=== PATIENT | male | born 1970 | race Hispanic/Latino ===

== ENCOUNTER 2017-04-14 16:12 | Inpatient (IN) | payer SELFPAY ==
[2017-04-14 16:21] VITALS: O2SAT 98
[2017-04-14] MEDS ORDERED: Sodium Chloride 0.9% 1,000 ML IV STA (16:55)
--- NOTE | 2017-04-14 17:26 | ED PDOC ---
HPI: Chest Pain Time Seen by Provider: 04/14/17 16:31 Chief Complaint (Nursing): Chest Pain Chief Complaint (Provider): chest discomfort History Per: Patient History/Exam Limitations: no limitations Onset/Duration Of Symptoms: Hrs (started at 11am) Associated Symptoms: Nausea, Diaphoresis Additional Complaint(s): Reports feeling in the left side of his chest going "in and out". Not outright pain. Possibly palpitations. Associated with brief shortness of breath and nausea and some retching. He attempted to walk to an [employer] appointement but continued to feel badly and instead walked in to a doctor's office who sent him to the ER. Pt also reports multiple stressful events in his life, that he is depressed. He has been taking adderall more than usual and using marijuana regularly every night to help him sleep. 2 days ago he decided to quit both cold turkey. Would like to see a psychiatrist. Past Medical History Reviewed: Historical Data, Nursing Documentation, Vital Signs Vital Signs: Last Vital Signs Temp 98 F 04/14/17 16:18 Pulse 92 H 04/14/17 16:18 Resp 20 04/14/17 16:18 BP 124/72 04/14/17 16:18 Pulse Ox 98 04/14/17 17:33 - Medical History PMH: Anxiety - Surgical History Surgical History: Hernia Repair, Tonsillectomy - Family History Family History: States: Other Other Family History: Depression - Social History Current smoker - smoking cessation education provided: No (Uses chewing tobacco regularly) Alcohol: Social Drugs: Cannabis, Prescription medications - Home Medications Home Medications: Ambulatory Orders Medication Instructions Recorded Ondansetron ODT [Zofran ODT] 1 odt PO Q6 PRN #20 odt 04/14/17 - Allergies Allergies/Adverse Reactions: Allergies Allergy/AdvReac Type Severity Reaction Status Date / Time No Known Allergies Allergy Verified 04/14/17 16:18 JUAN Risk Score for UA/NSTEMI - JUAN Risk Score Age > 64: NO 3 or more CAD Risk Factors: NO Known CAD (Stenosis greater than 50%): NO Aspirin use in past 7 days: NO Severe Angina: NO EKG ST changes greater than 0.5mm: NO Positive Cardiac Marker: NO JUAN Score: 0 Risk %: 5% Review of Systems ROS Statement: Except As Marked, All Systems Reviewed And Found Negative (and as per HPI) Constitutional: Positive for: Chills, Weakness, Malaise. Negative for: Fever Physical Exam - Reviewed Nursing Documentation Reviewed: Yes Vital Signs Reviewed: Yes - Physical Exam Appears: Positive for: Non-toxic, In Acute Distress (crying in ER) Head Exam: Positive for: ATRAUMATIC, NORMOCEPHALIC Skin: Positive for: Warm, Dry Eye Exam: Positive for: EOMI, PERRL, Conjunctival injection ENT: Positive for: Other (tacky muc membranes) Neck: Positive for: Painless ROM, Supple Cardiovascular/Chest: Positive for: Regular Rate, Rhythm, Chest Non Tender. Negative for: Murmur Respiratory: Positive for: Normal Breath Sounds. Negative for: Wheezing, Respiratory Distress Gastrointestinal/Abdominal: Positive for: Soft. Negative for: Tenderness, Mass , Distended, Guarding Back: Positive for: Normal Inspection. Negative for: Muscle Spasm Extremity: Positive for: Normal ROM. Negative for: Deformity Lymphatic: Negative for: Adenopathy Neurologic/Psych: Positive for: Alert, assembly instructions writer II-XII (grossly intact), Oriented (x3 ), Mood/Affect (depressed and tearful and anxious, fair concentration ( sometimes doesn't answer questions directly) and slow to answer questions). Negative for: Motor/Sensory Deficits, Facial Droop - Laboratory Results Result Diagrams: 04/14/17 17:28 04/14/17 17:28 Interpretation Of Abn Labs: No emergent clinically significant lab abnormalities - ECG ECG: Positive for: Interpreted By Me ECG Rhythm: Positive for: Normal QRS, Normal ST Segment, Sinus Rhythm O2 Sat by Pulse Oximetry: 98 Pulse Ox Interpretation: Normal - Progress ED Course And Treament: Evaluated by LINDA Mauro, who d/w Jorgito Paul. Pt offered hospitalization but declined. He is stable for discharge otherwise. Medical Decision Making Medical Decision Making: Nausea and chest discomfort with clinical signs of anxiety and depression. No suicidal or homicidal ideation. No emergent medical conditions. Evaluated and cleared by Crisis with follow up appointment April 21. Stable for discharge. Disposition - Clinical Impression Clinical Impression: Adjustment disorder, Nausea Counseled Patient/Family Regarding: Studies Performed, Diagnosis, Need For Followup, Rx Given - Disposition Referrals: [facility] [Outside] - 04/21/17 (FOLLOW UP SCHEDULED FOR YOUR APPOINTMENT) Disposition: Routine/Home Disposition Time: 19:00 Condition: STABLE Prescriptions: Ondansetron ODT [Zofran ODT] 1 odt PO Q6 PRN #20 odt PRN Reason: Nausea/Vomiting Instructions: Stress (ED), Acute Nausea and Vomiting (ED) Forms: [facility] ED School/Work Excuse
[2017-04-14 17:53] LABS: BASO % 0.6 % (0.0-2.0); EOS # 0.1 K/uL (0.0-0.7); EOS % 0.9 % (0.0-4.0); LYMPH % 24.2 % (20.0-40.0); MEAN CELL VOLUME 91.6 fl (80.0-94.0); MEAN CORPUSCULAR HEMOGLOBIN 31.5 pg (27.0-31.0); MEAN CORPUSCULAR HGB CONC 34.4 g/dL (33.0-37.0); MEAN PLATELET VOLUME 9.8 fl (7.2-11.7); MONO # 0.7 K/uL (0.0-0.8); MONO % 8.8 % (0.0-10.0); NEUT # 5.4 K/uL (1.8-7.0); NEUT % 65.5 % (50.0-75.0); NRBC % 0.6 % (0.0-0.0); RBC 4.75 Mil/uL (4.40-5.90); RED CELL DISTRIBUTION WIDTH 12.6 % (11.5-14.5); WHITE BLOOD COUNT 8.2 K/uL (4.8-10.8)
[2017-04-14 18:02] LABS: ALB/GLOB RATIO 1.8 (1.0-2.1); ALBUMIN 4.5 g/dL (3.5-5.0); ALT/SGPT 64 U/L (21-72); AST/SGOT 33 U/L (17-59); BLOOD UREA NITROGEN 9 mg/dl (9-20); CALCIUM 8.8 mg/dL (8.4-10.2); GFR AFRICAN-AMERICAN > 60; GFR NON-AFRICAN AMERICAN > 60; LIPASE 60 U/L (23-300); MAGNESIUM 1.8 MG/DL (1.6-2.3)
[2017-04-14 18:12] LABS: PARTIAL THROMBOPLASTIN TIME 27.7 Seconds (25.6-37.1)
[2017-04-14 19:10] LABS: BARBITURATES, UR NEGATIVE (NEGATIVE); BENZODIAZEPINES, UR NEGATIVE (NEGATIVE); OPIATES, UR NEGATIVE (NEGATIVE); PHENCYCLIDINE, UR NEGATIVE (NEGATIVE)
[2017-04-14] MEDS ORDERED: DiphenhydrAMINE 50 mg/ml Inj IM PRN (23:11)
[2017-04-14] MEDS ORDERED: Magnesium Hydroxide Susp 30 ml UD PO PRN (23:11)
[2017-04-14] MEDS ORDERED: Alum-Mag Hydrox-Simethicone Susp (30 mL) PO PRN (23:11)
[2017-04-15 09:32] LABS: T4 10.3 ug/dl (5.5-11.0)
[2017-04-15 09:36] VITALS: RESP 18
--- NOTE | 2017-04-15 12:05 | CP.PCM.CON ---
History of Present Illness - History of Present Illness History of Present Illness: 46 yo male with no significant PMH admitted to psyche unit because of increasing anxiety. Review of Systems - Review of Systems All systems: reviewed and no additional remarkable complaints except (aside from those mentioned above, 12 point system review were negative by me) Past Patient History - Tetanus Immunizations Tetanus Immunization: Unknown - Past Medical History & Family History Past Family History: Reviewed and not pertinent - Past Social History Smoking Status: Unknown If Ever Smoked Alcohol: Social Drugs: Cannabis, Prescription medications - CARDIAC Hx Cardiac Disorders: No - PULMONARY Hx Respiratory Disorders: No - NEUROLOGICAL Hx Neurological Disorder: No - HEENT Hx HEENT Problems: No - RENAL Hx Chronic Kidney Disease: No - ENDOCRINE/METABOLIC Hx Endocrine Disorders: No - HEMATOLOGICAL/ONCOLOGICAL Hx Blood Disorders: No - INTEGUMENTARY Hx Dermatological Problems: No - MUSCULOSKELETAL/RHEUMATOLOGICAL Hx Musculoskeletal Disorders: No - GASTROINTESTINAL Hx Gastrointestinal Disorders: Yes - GENITOURINARY/GYNECOLOGICAL Hx Genitourinary Disorders: No - PSYCHIATRIC Hx Substance Use: No - SURGICAL HISTORY Hx Tonsillectomy: Yes - ANESTHESIA Hx Anesthesia: Yes Hx Anesthesia Reactions: No Meds Home Medications: Home Medication List Medication Instructions Recorded Confirmed Type Ondansetron ODT [Zofran ODT] 1 odt PO Q6 PRN #20 odt 04/14/17 Rx Allergies/Adverse Reactions: Allergies Allergy/AdvReac Type Severity Reaction Status Date / Time No Known Allergies Allergy Verified 04/14/17 16:18 - Medications Medications: Current Medications Acetaminophen (Tylenol 325mg Tab) 650 mg PO Q4 PRN PRN Reason: pain level 1 to 7 Al Hydrox/Mg Hydrox/Simethicone (Maalox Plus 30 Ml) 30 ml PO Q4 PRN PRN Reason: Dyspepsia Diphenhydramine HCl (Benadryl) 50 mg IM Q6 PRN PRN Reason: Extrapyramidal S/S Unable PO Diphenhydramine HCl (Benadryl) 50 mg PO Q6 PRN PRN Reason: Extrapyramidal Symptoms Diphenhydramine HCl (Benadryl) 50 mg PO HS PRN PRN Reason: Sleep Haloperidol (Haldol) 5 mg PO Q4 PRN PRN Reason: Agitation Haloperidol Lactate (Haldol) 5 mg IM Q4 PRN PRN Reason: Agitation, Unable to Take PO Lorazepam (Ativan) 2 mg IM Q4 PRN PRN Reason: Anxiety/Agitation,Unable PO Lorazepam (Ativan) 2 mg PO Q4 PRN PRN Reason: Anxiety/Agitation Magnesium Hydroxide (Milk Of Magnesia) 30 ml PO HS PRN PRN Reason: Constipation Physical Exam - Constitutional Appears: No Acute Distress - Head Exam Head Exam: ATRAUMATIC - Eye Exam Eye Exam: absent: Scleral icterus - ENT Exam ENT Exam: Mucous Membranes Moist - Neck Exam Neck exam: Negative for: Meningismus - Respiratory Exam Respiratory Exam: absent: Rhonchi, Wheezes, Respiratory Distress - Cardiovascular Exam Cardiovascular Exam: REGULAR RHYTHM, +S1, +S2 - GI/Abdominal Exam GI & Abdominal Exam: Soft. absent: Tenderness - Rectal Exam Rectal Exam: Deferred - Extremities Exam Extremities exam: Negative for: pedal edema - Neurological Exam Neurological exam: Alert, Oriented x3 - Psychiatric Exam Psychiatric exam: Normal Affect - Skin Skin Exam: Dry, Intact Results - Vital Signs Recent Vital Signs: Last Vital Signs Temp 97.9 F 04/15/17 09:32 Pulse 85 04/15/17 09:32 Resp 18 04/15/17 09:32 BP 138/76 04/15/17 09:32 Pulse Ox 98 04/14/17 19:40 - Labs Result Diagrams: 04/14/17 17:28 04/14/17 17:28 Labs: Laboratory Results - last 24 hr 04/15/17 08:54 Triglycerides 61 Cholesterol 178 LDL Cholesterol Direct 116 HDL Cholesterol 52 Thyroxine (T4) 10.3 TSH 3rd Generation 0.65 Assessment & Plan (1) Anxiety Status: Acute Comment: psyche is managing
--- NOTE | 2017-04-15 19:28 | PCM.PSYCH ---
Initial Psychiatric Evaluation - Initial Psychiatric Evaluation Type of Admission: Voluntary Chief Complaint (in patient's own words): pt was approached by this proposal writer, proposal writer introduced self and identification was shown. pt reports feeling anxious and was not sleeping. then informed this proposal writer that he does not feel comfortable talking, was explained to pt the role of an advanced practice degress (skewer up). pt requests to wait until am to talk. acknowledged pt's thoughts attempted to process pt's presentation to [facility] on a voluntary admission in essence looking for help. explained to pt that is was in fact this proposal writer that the farmworker livestock contacted overnight to discuss pt- shared with pt that in fact pt initially wished to be discharged from er and was deemed able to be discharged to care of girlfriend, girlfriend was reported to have talk to pt and pt was then agreeable to be admitted (attempted to demonstrate to pt that proposal writer was familiar with his case). pt appeared to have erractic eye contact, tossing a book that was in his hands back and forth in his hands. continues to request to discuss case further in am. notes by staff report pt has a presentation of anxiety and decreased sleep for approx. 2 days prior to admission. records reviewed reveal the below ([employer] er [facility] er) CW JL obtained additional collateral information from the pt.s girlfriend, Linsey Cobb. The pt.s girlfriend reported that the pt.s father does have a history of manic depression. The pt.s girlfriend reported that the pt. does exhibit some symptoms of paranoia at times, which she attributed to work related stress. The pt.s girlfriend reported that the pt. has not been seeing his son as often, which she believes is a trigger for him. The pt.s girlfriend reported that the pt.s current relationship with his son has really impacted him lately, since they use to speak regularly. The pt.s girlfriend reported that the pt. has not been pursuing his interests regularly, such as working out. The pt.s girlfriend believes that the pt. did have some outrageous statements about his work yesterday, e.g. the pt. stated that he lost a lot of money, e.g. I lost 40 million dollars. The pt.s girlfriend also reported that the pt. made incoherent statements, also making vague reference to a Ponzi scheme. The pt.s girlfriend reported that the pt. used to work at [employer]. The pt.s girlfriend reported that the pt. has not been sleeping for the past three nights. The pt.s girlfriend reported that the pt. thought that there were people that were watching him when they were dining last night, making reference to black cars that he thought were following him. The pt.s girlfriend reported that the pt. waited to see if a black car would come to pick him up, suggesting that he needed to go wherever the black car would take him. The pt.s girlfriend reported that the pt. started walking aimlessly towards [employer]. The pt.s girlfriend also reported that the pt. asked why are you quizzing me. The pt.s girlfriend reported that the pt.s sister lives in [place], but is familiar with the familys history of genetics. The pt.s girlfriend reported that the pt. made reference to his children earlier today, crying thereafter, suggesting that he wants to see his children. The pt.s girlfriend reported that the pt. had stated that the pt. felt like there were others messing with his food. The pt.s girlfriend reported that the pt.s mind races. The pt.s girlfriend reported that the pt.s thinking was over the top. The pt.s girlfriend was unsure if the pt. needed to admitted to psychiatric inpatient, and suggested that she would like to speak to his sister about this situation. The pt. presents to this ER as a 46 year old male pt., who self referred to the ER with complaint of chest pain. LINDA BOSS. assessed the pt. At the time of the assessment the pt. exhibited symptoms of anxiety; the pt. did answer all questions asked of him, but did not provide a great level of detail in his responses. The pt.s speech was somewhat pressured at times, but WNL. The pt. was noted holding his chest, at which time he was also noted looking at the monitors in his room in a manner that showed concern. The pt.s mood was somewhat depressed and his affect was constricted. The pt. reported that he has been anxious for the past week and feels crazy. When this CW asked for the pt. to explain what he ment by this statement, the pt. explained I have been feeling very anxious. The pt. also reported that for the past week he has also felt a little depressed. The pt. spoke about his current life stressors, explaining that his relationship with his son has not been what it used to be. The pt. also reported that he has work related stressors. 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 The pt.s thought process was disoriented at times but just WNL; the pt. often took an extensive period of time to answer some questions. The pt. reported that he went through a bad divorce with his . The pt. also reported that he has been feeling overwhelmed lately. The pt. reported that he has suffered a traumatic life experience, which he described as the passing of his mother many years ago; at this time the pt. began to cry uncontrollably. The pt. was alert and oriented X3. The pt. then became calm towards the end of the assessment, and reported that he felt much better. The pt. denied SI and HI. The pt. also denied A/V/T hallucinations. The pt. did admit to use of marijuana, excessively over the last few days. The pt. was offered admission, pending the disposition of the psychiatrist, the pt. reported that he would consider it. The pt. admitted to felony charges, related to "computer spyware." The pt. also reported that he had 2 misdeamenor charges but did not provide full details History of Present Illness and Precipitating Events: 17:[address] Juan Sanchez referred the pt. to crisis, also explaining that the pt. self referred to the hospital due to chest pains, but seems to be exhibiting some underlying depression. 17:03 CW GERA. assessed the pt. At the time of the assessment the pt. exhibited symptoms of anxiety; the pt. did answer all questions asked of him, but did not provide a great level of detail in his responses. The pt.s speech was somewhat pressured at times, but WNL. The pt. was noted holding his chest, at which time he was also noted looking at the monitors in his room in a manner that showed concern. The pt.s mood was somewhat depressed and his affect was constricted. The pt. reported that he has been anxious for the past week and feels crazy. When this CW asked for the pt. to explain what he ment by this statement, the pt. explained I have been feeling very anxious. The pt. also reported that for the past week he has also felt a little depressed. The pt. spoke about his current life stressors, explaining that his relationship with his son has not been what it used to be. The pt. also reported that he has work related stressors. 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 The pt.s thought process was disoriented at times but just WNL; the pt. often took an extensive period of time to answer some questions. The pt. reported that he went through a bad divorce with his . The pt. also reported that he has been feeling overwhelmed lately. The pt. reported that he has suffered a traumatic life experience, which he described as the passing of his mother many years ago; at this time the pt. began to cry uncontrollably. The pt. was alert and oriented X3. The pt. then became calm towards the end of the assessment, and reported that he felt much better. The pt. denied SI and HI. The pt. also denied A/V/T hallucinations. The pt. did admit to use of marijuana, excessively over the last few days. The pt. was offered admission, pending the disposition of the psychiatrist, the pt. reported that he would consider it. 17:17 CW SIMEON called to verify if there is a PAD on file for the pt. According to [facility] worker Desiree there is no PAD on file. 17:31 CW GERA obtained additional collateral information from the pt.s girlfriend , Linsey Cobb. The pt.s girlfriend reported that the pt.s father does have a history of manic depression. The pt.s girlfriend reported that the pt. does exhibit some symptoms of paranoia at times, which she attributed to work related stress. The pt.s girlfriend reported that the pt. has not been seeing his son as often, which she believes is a trigger for him. The pt.s girlfriend reported that the pt.s current relationship with his son has really impacted him lately, since they use to speak regularly. The pt.s girlfriend reported that the pt. has not been pursuing his interests regularly, such as working out. The pt.s girlfriend believes that the pt. did have some outrageous statements about his work yesterday, e.g. the pt. stated that he lost a lot of money, e.g. I lost 40 million dollars. The pt.s girlfriend also reported that the pt. made incoherent statements, also making vague reference to a Ponzi scheme. The pt.s girlfriend reported that the pt. used to work at [employer]. The pt.s girlfriend reported that the pt. has not been sleeping for the past three nights. The pt.s girlfriend reported that the pt. thought that there were people that were watching him when they were dining last night, making reference to black cars that he thought were following him. The pt.s girlfriend reported that the pt. waited to see if a black car would come to pick him up, suggesting that he needed to go wherever the black car would take him. The pt.s girlfriend reported that the pt. started walking aimlessly towards [employer]. The pt.s girlfriend also reported that the pt. asked why are you quizzing me. The pt.s girlfriend reported that the pt.s sister lives in [place], but is familiar with the familys history of genetics. The pt.s girlfriend reported that the pt. made reference to his children earlier today, crying thereafter, suggesting that he wants to see his children. The pt.s girlfriend reported that the pt. had stated that the pt. felt like there were others messing with his food. The pt.s girlfriend reported that the pt.s mind races. The pt.s girlfriend reported that the pt.s thinking was over the top. The pt.s girlfriend was unsure if the pt. needed to be kept inpatient, and suggested that she would like to speak to his sister about this situation. 17:55 LINDA BOSS. gave report to the on-call Nurse Practitioner Jorgito Paul, whos disposition was to offer admission. 18:17 LINDA BOSS attempted to obtain additional collateral information from the pt.s sister, Leslie Conley ([phone]); no answer, left message with detailed call back information. 18:30 CW GERA. offered admission to the pt., also explaining to the pt. the policies, expected length of stay and visitation rights of the unit; the pt. wanted to consider outpatient. This CW suggested that the pt. consider admission and provided him with some time to do so. 18:35 LINDA BOSS. apprised ER DrClarita, Dr Martinez with regards to the disposition of the psychiatrist, also reporting that the pt. was being given a little more time to consider admission. Dr. Martinez was also informed that the order was to go under [facility], although disp. was provided by WERO Paul 18:43 CW GERA. spoke to the pt., who at this time, declined admission; the pt. did accept an appointment for 06/21/2017 at 9:20AM with the [facility]. The pt. was agreeable to follow up and was provided with outpatient referrals including [facility]. The pt. was also explained that if his symptoms worsen or persist he could return to the hospital for re-evaluation for inpatient admission. Current Medications: Active Medications Generic Name Dose Route Start Last Admin Trade Name Freq PRN Reason Stop Dose Admin Acetaminophen 650 mg 04/14/17 23:11 Tylenol 325mg Tab PO Q4 PRN pain level 1 to 7 Al Hydrox/Mg Hydrox/Simethicone 30 ml 04/14/17 23:11 Maalox Plus 30 Ml PO Q4 PRN Dyspepsia Diphenhydramine HCl 50 mg 04/14/17 23:11 Benadryl IM Q6 PRN Extrapyramidal S/S Unable PO Diphenhydramine HCl 50 mg 04/14/17 23:11 Benadryl PO Q6 PRN Extrapyramidal Symptoms Diphenhydramine HCl 50 mg 04/14/17 23:18 Benadryl PO HS PRN Sleep Haloperidol 5 mg 04/14/17 23:11 Haldol PO Q4 PRN Agitation Haloperidol Lactate 5 mg 04/14/17 23:11 Haldol IM Q4 PRN Agitation, Unable to Take PO Lorazepam 2 mg 04/14/17 23:11 Ativan IM Q4 PRN Anxiety/Agitation,Unable PO Lorazepam 2 mg 04/14/17 23:11 Ativan PO Q4 PRN Anxiety/Agitation Magnesium Hydroxide 30 ml 04/14/17 23:11 Milk Of Magnesia PO HS PRN Constipation Past Psychiatric History - Past Psychiatric History Prior Professional Help: recoreds reveal pt gave a hx of occasional tx no detail offered Pertinent Medical Hx (Current Medical&Sleep Prob, Allergies): Allergies Allergy/AdvReac Type Severity Reaction Status Date / Time No Known Allergies Allergy Verified 04/14/17 16:18 Ondansetron ODT [Zofran ODT] 1 odt PO Q6 PRN #20 odt 04/14/17 Review of Systems - Psychiatric Psychiatric: Abnormal Sleep Pattern, Anxiety, Paranoia, Visual Hallucinations Additional comments: per review of information offered in er and upon presentation to unit Mental Status Examination - Personal Presentation Personal Presentation: Looks stated age - Affect Affect: Constricted - Motor Activity Motor Activity: Psychomotor Agitation - Reliability in Providing Information Additional comments: minimum offered - Speech Additional comments: soft under productive - Formal Thought Process Additional comments: per history possible paranoia as well as initial interaction with this proposal writer - Hallucinations/Delusions Hallucinations: Visual Additional comments: per history - Strength & Assets Inventory Additional comments: voluntary - Limitations Additional comments: new to unit, likely first inpt adm, paranoia, anxiety, insomnia DSM 5 DX - DSM 5 DSM 5 Diagnosis: 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
--- NOTE | 2017-04-15 20:30 | CARD ---
APPROVED REPORT EKG Measurement Heart [id number] <Conclusion> Normal sinus rhythm Normal ECG
--- NOTE | 2017-04-16 19:50 | PCM.PYCHPN ---
Psychiatric Progress Note - Psychiatric Progress Note Patient seen today, length of contact: chart reviewed case discussed with team Patient Chief Complaint: was approached by this technical proposal writer, technical proposal writer introduced self and identification was shown. pt reports feeling anxious and was not sleeping. 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 pt requests to wait until am to talk. acknowledged pt's thoughts attempted to process pt's presentation to [facility] on a voluntary admission in essence looking for help. explained to pt that is was in fact this technical proposal writer that the die try out worker contacted overnight to discuss pt- shared with pt that in fact pt initially wished to be discharged from er and was deemed able to be discharged to care of girlfriend, girlfriend was reported to have talk to pt and pt was then agreeable to be admitted (attempted to demonstrate to pt that technical proposal writer was familiar with his case). pt appeared to have erractic eye contact, tossing a book that was in his hands back and forth in his hands. continues to request to discuss case further in am. notes by staff report pt has a presentation of anxiety and decreased sleep for approx. 2 days prior to admission. records reviewed reveal the below (die try out worker er [facility] er) CW JL obtained additional collateral information from the pt.s girlfriend, Linsey Cobb. The pt.s girlfriend reported that the pt.s father does have a history of manic depression. The pt.s girlfriend reported that the pt. does exhibit some symptoms of paranoia at times, which she attributed to work related stress. The pt.s girlfriend reported that the pt. has not been seeing his son as often, which she believes is a trigger for him. The pt.s girlfriend reported that the pt.s current relationship with his son has really impacted him lately, since they use to speak regularly. The pt.s girlfriend reported that the pt. has not been pursuing his interests regularly, such as working out. The pt.s girlfriend believes that the pt. did have some outrageous statements about his work yesterday, e.g. the pt. stated that he lost a lot of money, e.g. I lost 40 million dollars. The pt.s girlfriend also reported that the pt. made incoherent statements, also making vague reference to a Ponzi scheme. The pt.s girlfriend reported that the pt. used to work at [employer]. The pt.s girlfriend reported that the pt. has not been sleeping for the past three nights. The pt.s girlfriend reported that the pt. thought that there were people that were watching him when they were dining last night, making reference to black cars that he thought were following him. The pt.s girlfriend reported that the pt. waited to see if a black car would come to pick him up, suggesting that he needed to go wherever the black car would take him. The pt.s girlfriend reported that the pt. started walking aimlessly towards [address] The pt.s girlfriend also reported that the pt. asked why are you quizzing me. The pt.s girlfriend reported that the pt.s sister lives in [place], but is familiar with the familys history of genetics. The pt.s girlfriend reported that the pt. made reference to his children earlier today, crying thereafter, suggesting that he wants to see his children. The pt.s girlfriend reported that the pt. had stated that the pt. felt like there were others messing with his food. The pt.s girlfriend reported that the pt.s mind races. The pt.s girlfriend reported that the pt.s thinking was over the top. The pt.s girlfriend was unsure if the pt. needed to admitted to psychiatric inpatient, and suggested that she would like to speak to his sister about this situation. The pt. presents to this ER as a 46 year old male pt., who self referred to the ER with complaint of chest pain. LINDA BOSS. assessed the pt. At the time of the assessment the pt. exhibited symptoms of anxiety; the pt. did answer all questions asked of him, but did not provide a great level of detail in his responses. The pt.s speech was somewhat pressured at times, but WNL. The pt. was noted holding his chest, at which time he was also noted looking at the monitors in his room in a manner that showed concern. The pt.s mood was somewhat depressed and his affect was constricted. The pt. reported that he has been anxious for the past week and feels crazy. When this CW asked for the pt. to explain what he ment by this statement, the pt. explained I have been feeling very anxious. The pt. also reported that for the past week he has also felt a little depressed. The pt. spoke about his current life stressors, explaining that his relationship with his son has not been what it used to be. The pt. also reported that he has work related stressors. 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 The pt.s thought process was disoriented at times but just WNL; the pt. often took an extensive period of time to answer some questions. The pt. reported that he went through a bad divorce with his . The pt. also reported that he has been feeling overwhelmed lately. The pt. reported that he has suffered a traumatic life experience, which he described as the passing of his mother many years ago; at this time the pt. began to cry uncontrollably. The pt. was alert and oriented X3. The pt. then became calm towards the end of the assessment, and reported that he felt much better. The pt. denied SI and HI. The pt. also denied A/V/T hallucinations. The pt. did admit to use of marijuana, excessively over the last few days. The pt. was offered admission, pending the disposition of the psychiatrist, the pt. reported that he would consider it. The pt. admitted to felony charges, related to "computer spyware." The pt. also reported that he had 2 misdeamenor charges but did not provide full details Problems Identified/Issues Discussed: alteration in mood, alteration in sleep, multiple stressors pt was seen with primary rn , pt reports changes multiple changes in life over past years since 2008 including divorce, distancing from 15 yo son and 17 yo daughter, changes in financial status-decreased sleep over past 2 weeks 2nd stressors. has support of girlfriend linsey. reports last night with trazodone 50mg po hs and 12.5mg seroquel hs. reports had full night's sleep, some somnolence during day-felt rested denies eps, Medical Problems: per chart being followed by hospitalist Diagnostic Results: per psychiatry per medicine per nursing per social work per recreational therapy DSM 5 Symptoms Update: alteration in mood, decreased sleep, ?hyperactivity Medication Change: No Medical Record Reviewed: Yes Consults ordered or reviewed: pt being followed by hospitalist Mental Status Examination - Cognitive Function Orientation: Person, Place, Situation, Time Memory: Intact Attention: WNL Concentration: WNL Association: WNL Fund of Knowledge: [facility] Decription of patient's judgement and insights: impaired - Mood Mood: Depressed, Anxious - Affect Affect: Constricted Additional comments: less constricted as compared to [id number] pt tearful at times appears contextually appropriately - Speech Speech: Appropriate - Formal Thought Process Formal Thought Process: No Impairment - Homicidal Ideation Homicidal Ideation: No Goal/Treatment Plan - Goal/Treatment Plan Need for Continued Stay: Remain at risks for inpatient hospitalization Progress Toward Problem(s) and Goals/Treatment Plan: inpt adm milieu therapy vital signs/clinical observation per protocol and per clinical status prns per protocol hospitalist consult continue insomnia will rx trazodone 50mg po hs and quetiapine 12.50 po hs team can reassess in am possible increase of quetiapine and or addition of additional mood stabilzer discharge planning in progress Estimated Date of D/C: 04/21/17 - Smoking Cessation Smoking Cessation Initiated: No Reason for not providing: deferred
[2017-04-17] MEDS ORDERED: Apap-Butalbital-Caffeine 325-50-40mg Tab PO PRN (10:09)
--- NOTE | 2017-04-17 12:10 | PCM.PYCHPN ---
Psychiatric Progress Note - Psychiatric Progress Note Patient seen today, length of contact: discussed with team Patient Chief Complaint: i am feeling much better Problems Identified/Issues Discussed: pt states he is sleeping much better. no paranoid or psychotic symptoms. he states he has opened up over the weekend about some family issues and is looking forward to being referred to outpt therapy. he reports headache as he is a heavy coffee drinker when not in the hospital. Medication Change: No Medical Record Reviewed: Yes Mental Status Examination - Cognitive Function Orientation: Person, Place, Situation, Time Memory: Intact Attention: WNL Concentration: WNL Association: WN Fund of Knowledge: [facility] Decription of patient's judgement and insights: fair - Mood Mood: Depressed, Anxious - Affect Affect: Constricted - Speech Speech: Appropriate - Formal Thought Process Formal Thought Process: No Impairment - Suicidal Ideation Suicidal Ideation: No - Homicidal Ideation Homicidal Ideation: No Goal/Treatment Plan - Goal/Treatment Plan Need for Continued Stay: Remain at risks for inpatient hospitalization, Discharge may exacerbated symptoms Progress Toward Problem(s) and Goals/Treatment Plan: psychotic disorder, unpecified continue current treatment disposition planning- refer for treatment with outpt therapy/psychopharm Estimated Date of D/C: 04/21/17
[2017-04-17 17:08] VITALS: TEMP 98.1
[2017-04-18 08:52] VITALS: BP 131/59; PULSE 90
--- NOTE | 2017-04-18 13:07 | PCM.PYCHDC ---
Mental Status Examination - Mental Status Examination Orientation: Person, Place, Situation, Time Memory: Intact Mood: Neutral Affect: Broad Speech: Appropriate Attention: WNL Concentration: WNL Association: WNL Fund of Knowledge: WNL Formal Thought Process: No Impairment Description of patient's judgement and insight: fair Psychotic Thoughts and Behaviors: denies an a/v hallucinations. no paranoid thoughts or delusions expressed. Suicidal Ideation: No Current Homicidal Ideation?: No Discharge Summary - Discharge Note Reason for Hospitalization: psychotic symptoms. Psychiatric History (includes Medical, Family, Personal Hx): no previous psychiatric history Laboratory Data: no amphetamines in uds Consultations:: List each consultation separately and include: 1. Reason for request. 2. Findings. 3. Follow-up Consultations: seen by hospitalist Summary of Hospital Course include:: 1. Description of specific treatment plan utilized for patients during their course of treatmen. 2. Summarize the time- course for resolution of acute symptoms and/or regressed behaviors. 3. Describe issues identified and worked on during hospitalization. 4. Describe medication utilized. 5. Describe medical problems identified and treated. 6. Reassessment of suicide risk Summary of Hospital Course: was admitted to [facility] and seen by the covering provider. he was started on low dose of seroquel and trazodone. he was oriented to the unit and was seen by the medical or surgical instrument maker. he felt relief after coming onto the unit. he tolerated the medications and felt his sleep was improved. he felt a benefit from talking about his family issues and felt that an outpatient follow up would be beneficial. he was referred to outpatient programs. he was given prescriptions ( eprescribed to [facility] near his home) and at the time of discharge he was denying any suicidal or homicidal thoughts/plans or intent. his girfriend was supportive of the discharge. - Final Diagnosis (DSM 5) Condition upon Discharge: STABLE DSM 5: psychosis unspecified adhd by history r/o brief psychotic episode Disposition: HOME/ ROUTINE Follow-up Treatment Plan: follow up with aftercare as directed take medications as prescribed do not use alcohol, tobacco or other illicit substances call 911 if any suicidal or homicidal thoughts do not use adderrall or ritalin or other stimulant medications and try to limit your intake of caffeine. Prescriptions/Medication Reconciliation: QUEtiapine [Seroquel] 12.5 mg PO HS #15 tab traZODone [Desyrel] 50 mg PO HS #30 tab - Smoking Cessation Smoking Cessation Medication prescribed: No Reason for not providing: declines - Antipsychotic Medications Pt discharged on 2 or more routine antipsychotic medications: No
--- NOTE | 2017-04-19 06:22 | CARD ---
APPROVED REPORT EKG Measurement Heart [id number] <Conclusion> Normal sinus rhythm Normal ECG
== END 2017-04-18 14:15 | disposition home or self-care (01) | DRG 885 ==
LOC: H.ER 16:12 → H.ERHOLD 20:46 → H.PSYCH 22:32
PROVIDERS: ADMIT Psychiatry & Neurology Psychiatry; ATTEND Psychiatry & Neurology Psychiatry
PROC: GZ51ZZZ Individual Psychotherapy, Behavioral (ICD-10-PCS; 2017-04-14)
PROC: GZHZZZZ Group Psychotherapy (ICD-10-PCS; principal; 2017-04-17)
DX: F29 Unspecified psychosis not due to a substance or known physiological condition (principal); F32.1 Major depressive disorder, single episode, moderate; F43.20 Adjustment disorder, unspecified; F12.90 Cannabis use, unspecified, uncomplicated; F41.1 Generalized anxiety disorder; F90.9 Attention-deficit hyperactivity disorder, unspecified type; G47.00 Insomnia, unspecified; Z72.0 Tobacco use